=== PATIENT | female | born 1975 | race Caucasian/White ===

== ENCOUNTER 2017-02-18 19:59 | Emergency (ER) | payer OTHER ==
[2017-02-18 20:02] VITALS: BP 152/71; PULSE 87; RESP 20; TEMP 98.3
[2017-02-18] MEDS ORDERED: Acetaminophen-Codeine 300-30mg TAB PO STA (20:36)
--- NOTE | 2017-02-18 20:47 | ED ---
Skin/Abscess/FB HPI - General Chief complaint: Skin/Abscess/Foreign Body Stated complaint: bite by eye Time Seen by Provider: 02/18/17 20:27 Source: patient, RN notes reviewed Mode of arrival: ambulatory Limitations: no limitations - History of Present Illness Initial comments: This is a 41-year-old female who presents to the emergency department with chief complaint of "bite by eye." Patient states that 2 nights ago she awoke with a small pimple-like lesion next to her right eye. She states she believes she may have been bit by a spider. Patient states that the lesion has grown significantly both in size and in pain. Patient states she is unable to sleep due to the pain. She states she has been applying warm compresses but that it has not come to a head. Patient denies any fevers or chills. She denies any drainage from the area. Denies chest pain, shortness of breath, abdominal pain, nausea or vomiting, constipation or diarrhea, dysuria or hematuria, numbness or tingling, or vision changes. - Related Data Home Medications Medication Instructions Recorded Confirmed Ibuprofen [Motrin] 800 mg PO BID PRN 02/18/17 02/18/17 Previous Rx's Medication Instructions Recorded Sulfamethox-Tmp 800-160Mg [Bactrim 1 tab PO Q12HR #20 tab 02/18/17 DS 800-160 mg] Allergies Allergy/AdvReac Type Severity Reaction Status Date / Time No Known Allergies Allergy Verified 02/18/17 20:47 Review of Systems ROS Statement: Those systems with pertinent positive or pertinent negative responses have been documented in the HPI. ROS Other: All systems not noted in ROS Statement are negative. Past Medical History Past Medical History: No Reported History Additional Past Medical History / Comment(s): KIDNEY STONES History of Any Multi-Drug Resistant Organisms: None Reported Past Surgical History: Orthopedic Surgery Additional Past Surgical History / Comment(s): LEFT ARM Past Psychological History: ADD/ADHD, Anxiety, Depression Smoking Status: Current every day smoker Past Alcohol Use History: None Reported Past Drug Use History: None Reported General Exam - General Exam Comments Initial Comments: General: Awake and alert, well-developed; in no apparent distress. HEENT: Head atraumatic, normocephalic. Localized soft tissue swelling with surrounding erythema and overlying scab noted at right lateral eye. No drainage noted. Area is tender on palpation and no area of fluctuance is noted. Pupils are equal, round and reactive to light. Extraocular movements intact. Oropharynx moist without erythema or exudate. Neck: Supple. Normal ROM. Cardiovascular: Regular rate and rhythm. No murmurs, rubs or gallops. Chest symmetrical. Respiratory: Lungs clear to auscultation bilaterally. No wheezes, rales or rhonchi. Normal respiratory effort with no use of accessory muscles. Musculoskeletal: Normal ROM, no tenderness bilateral upper and lower extremities. Ambulating normally. Skin: [place], warm and dry without rashes. Cellulitis as noted above. Neurological: Alert and oriented x3. CN II-XII grossly intact. Speech is fluent and answers are appropriate. No focal neuro deficits. Psychiatric: Normal mood and affect. No overt signs of depression or anxiety noted. Limitations: no limitations Course Vital Signs 02/18/17 20:00 Temperature 98.3 F Pulse Rate 87 Respiratory 20 Rate Blood Pressure 152/71 O2 Sat by Pulse 98 Oximetry Medical Decision Making - Medical Decision Making This is a 41-year-old female presents to the emergency department with chief complaint of "bite by eye." She is afraid she may have been bit by a spider but denies ever seeing a spider. There is a localized area of cellulitis and right lateral eye. Patient denies any vision changes. She complains of pain and difficulty sleeping. Given one pain medication while in the emergency department. No areas of fluctuance are noted so no I&D is warranted at this time. Warm compresses and antibiotics were recommended. Patient is to follow- up with her primary care provider or return to the emergency department if lesion comes to head for I&D. Patient is in agreement with plan and voices understanding. All questions were answered. Disposition Clinical Impression: Cellulitis and abscess of face Disposition: HOME SELF-CARE Condition: Good Instructions: Cellulitis (ED) Additional Instructions: Please take medications as prescribed. Please return to the emergency department or follow-up with your primary care provider if abscess forms for incision and drainage. Please follow up with primary care provider within 1-2 days. Return to emergency department if symptoms should worsen or any concerns arise. Prescriptions: Sulfamethox-Tmp 800-160Mg [Bactrim DS 800-160 mg] 1 tab PO Q12HR #20 tab Referrals: None,Stated [Primary Care Provider] - 1-2 days Shahram Cohen MD [STAFF PHYSICIAN] - 1-2 days Time of Disposition: 20:51
[2017-02-18] MEDS ORDERED: ACET/COD 300 MG/30 MG STARTER PACK 6 TAB BTL PO STA (20:49)
[2017-02-18] MEDS ORDERED: SULFAMETHOX-TMP 800-160MG 1 EACH TAB PO STA (20:50)
== END 2017-02-18 21:07 | disposition home or self-care (01) ==
LOC: EC 19:59
DX: L03.211 Cellulitis of face (principal); L02.01 Cutaneous abscess of face; F17.200 Nicotine dependence, unspecified, uncomplicated
CPT/HCPCS: 99283

== ENCOUNTER 2017-03-03 17:32 | Emergency (ER) | payer OTHER ==
[2017-03-03 17:58] VITALS: BP 140/80; PULSE 80; RESP 20; TEMP 98.5
[2017-03-03] MEDS ORDERED: PENICILLIN VK 500MG STARTER 4 TAB BTL PO STA (18:47)
[2017-03-03] MEDS ORDERED: IBUPROFEN 600 MG STARTER PACK 4 TAB BTL PO STA (18:47)
--- NOTE | 2017-03-03 18:50 | ED ---
General Adult HPI - General Chief complaint: Dental/Oral Stated complaint: Toothache Time Seen by Provider: 03/03/17 18:34 Source: patient, RN notes reviewed Mode of arrival: ambulatory Limitations: no limitations - History of Present Illness Initial comments: Patient's 41-year-old female who presents emergency room today with a chief complaint of increased dental pain. Patient does admit to pain to tooth #30 and 31. States there've been fractured for some time. States that she was over at [facility]' emergency room. States he was trying to do an injection but it was causing too much pain and she put her hand up and he became upset her and she eventually walked out. She did not receive any other treatment there. Patient states that she decided to come here instead. Patient states she is trying to find a dentist. She denies any drainage discharge. Denies any other complaints or symptoms. Patient denies any recent fever, chills, shortness of breath, chest pain, back pain, abdominal pain, nausea or vomiting, numbness or tingling, dysuria or hematuria, constipation or diarrhea, headaches or visual changes, or any other complaints. - Related Data Previous Rx's Medication Instructions Recorded Hydrocodone/Acetaminophen [Emmett 1 each PO Q6HR PRN #6 tab 03/03/17 5-325] Ibuprofen [Motrin] 600 mg PO Q6HR PRN #30 day 03/03/17 Penicillin V Potassium [Pen Vee K] 500 mg PO QID #40 tablet 03/03/17 Allergies Allergy/AdvReac Type Severity Reaction Status Date / Time No Known Allergies Allergy Verified 03/03/17 17:59 Review of Systems ROS Statement: Those systems with pertinent positive or pertinent negative responses have been documented in the HPI. ROS Other: All systems not noted in ROS Statement are negative. Past Medical History Past Medical History: No Reported History Additional Past Medical History / Comment(s): KIDNEY STONES History of Any Multi-Drug Resistant Organisms: None Reported Past Surgical History: Orthopedic Surgery Additional Past Surgical History / Comment(s): LEFT ARM Past Psychological History: ADD/ADHD, Anxiety, Depression Smoking Status: Current every day smoker Past Alcohol Use History: None Reported Past Drug Use History: None Reported General Exam - General Exam Comments Initial Comments: General: The patient is awake and alert, in no distress, and does not appear acutely ill. Eye: Pupils are equal, round and reactive to light, extra-ocular movements are intact. No nystagmus. There is normal conjunctiva bilaterally. No signs of icterus. Ears, nose, mouth and throat: There are moist mucous membranes and no oral lesions. Patient does have a fracture of tooth #30 and 31. Locally tender in the gumline. No sign of abscess. Neck: The neck is supple, there is no tenderness or JVD. Cardiovascular: There is a regular rate and rhythm. No murmur, rub or gallop is appreciated. Respiratory: Lungs are clear to auscultation, respirations are non-labored, breath sounds are equal. No wheezes, stridor, rales, or rhonchi. Musculoskeletal: Normal ROM, no tenderness. Strength 5/5. Sensation intact. Pulses equal bilaterally 2+. Neurological: A&O x 3. CN II-XII intact, There are no obvious motor or sensory deficits. Coordination appears grossly intact. Speech is normal. Skin: Skin is warm and dry and no rashes or lesions are noted. Psychiatric: Cooperative, appropriate mood & affect, normal judgment. Limitations: no limitations Course Vital Signs 03/03/17 17:57 Temperature 98.5 F Pulse Rate 80 Respiratory 20 Rate Blood Pressure 140/80 O2 Sat by Pulse 98 Oximetry Medical Decision Making - Medical Decision Making Patient present pain medication here in the emergency room will be given a short prescription for Emmett 6 tablets. Patient will be given ibuprofen along with penicillin advised follow-up Disposition Clinical Impression: Dental abscess Disposition: HOME SELF-CARE Condition: Good Instructions: Dental Abscess (ED) Additional Instructions: Please follow-up with dentist and use antibiotic and pain medication as discussed. [facility] [address] [phone]) (existing clients only) For new clients: [phone] [employer] [facility] [employer] Pay $50 for x-rays and the rest discovered [phone] Prescriptions: Hydrocodone/Acetaminophen [Emmett 5-325] 1 each PO Q6HR PRN #6 tab PRN Reason: Pain Ibuprofen [Motrin] 600 mg PO Q6HR PRN #30 day PRN Reason: Pain Penicillin V Potassium [Pen Vee K] 500 mg PO QID #40 tablet Referrals: None,Stated [Primary Care Provider] - 1-2 days Time of Disposition: 18:49
== END 2017-03-03 19:05 | disposition home or self-care (01) ==
LOC: EC 17:32
DX: K04.7 Periapical abscess without sinus (principal); S02.5XXA Fracture of tooth (traumatic), initial encounter for closed fracture; F17.200 Nicotine dependence, unspecified, uncomplicated; X58.XXXA Exposure to other specified factors, initial encounter
CPT/HCPCS: 99282